=== PATIENT | female | born 1995 | race Caucasian/White ===

== ENCOUNTER 2018-01-05 16:57 | Emergency (ER) | payer BC ==
[2018-01-05 17:33] LABS: URINE HCG POC HCG NEGATIVE (Negative)
[2018-01-05 17:40] LABS: BILIRUBIN,URINE NEGATIVE (NEG); CLARITY,URINE CLOUDY; COLOR,URINE YELLOW; GLUCOSE,URINE NEGATIVE (NEG); NITRITE,URINE NEGATIVE (NEG); PROTEIN,URINE 30 mg/dL (NEG-TRACE); UROBILINOGEN,URINE 0.2 mg/dL (0.2 mg/dL)
[2018-01-05 17:51] LABS: BACTERIA,URINE MODERATE /HPF (0-FEW); SQUAMOUS EPITHELIAL CELL,UR FEW /LPF
[2018-01-05 18:46] LABS: AGAP ISTAT 15 mmol/L (6-14); BUN ISTAT 18 mg/dL (8-26); CHLORIDE ISTAT 105 mmol/L (98-110); CREATININE ISTAT 1.1 mg/dL (0.5-1.4); GLUCOSE ISTAT 123 mg/dL (70-99); HEMATOCRIT ISTAT 34 % (36-40); HEMOGLOBIN ISTAT 11.6 g/dL (12-15); ION CA ISTAT 1.18 mmol/L (1.13-1.32); POTASSIUM ISTAT 4.5 mmol/L (3.5-5.0); SODIUM ISTAT 139 mmol/L (135-145); TOT CO2 ISTAT 25 mmol/L (23-32)
[2018-01-05] MEDS: TAMSULOSIN 0.4 MG CAP.ER.24H. PO (19:02)
[2018-01-05] MEDS: HYDROcodone/APAP 5/325MG 1 TAB TABLET PO (19:02)
== END 2018-01-05 19:40 | disposition home or self-care (01) ==
LOC: ER 16:57
DX: N20.1 Calculus of ureter (principal); N39.0 Urinary tract infection, site not specified; Z91.030 Bee allergy status
CPT/HCPCS: 36415; 74176; 80047; 81001; 81025; 85014; 85018; 87086; 99285-25

== ENCOUNTER → 2018-03-02 | Outpatient (CLI) | payer BC | END | disposition home or self-care (01) | LOC: KCIC US 07:47 | DX: R10.11 Right upper quadrant pain (principal) | CPT/HCPCS: 76705 ==